=== PATIENT | male | born 1945 | race Caucasian/White ===

== ENCOUNTER → 2018-05-29 15:17 | Outpatient (CLI) | payer MEDICARE, SELFPAY ==
--- NOTE | 2018-05-29 15:24 | DI.MRI.S_ITS ---
PROCEDURE: MR KNEE LT WO CON INDICATIONS: l knee pain TECHNIQUE: Noncontrast sagittal PD fast spin echo and T2 fast spin echo with fat saturation, sagittal 3-D FLASH with fat saturation; coronal T1 spin echo and PD fast spin echo with fat saturation, and axial PD fast spin echo with fat saturation through the knee. COMPARISON: [facility], CR, XR KNEE LT 3V, 05/29/2018, 15:04. FINDINGS: Image quality: Excellent. Menisci: The medial meniscal tear involving the posterior root of the posterior horn and body, with extension to the undersurface. Truncation of the free margin of the lateral meniscal body. There is also horizontally oriented abnormal signal, also suggestive of tear involving the body. Cruciate ligaments: The anterior and posterior cruciate ligaments appear intact. Medial structures: The medial collateral ligament appears markedly thickened with intrasubstance signal change and surrounding soft tissue edema. Given the acute soft tissue edema in conjunction with the appearance of the calcific densities in this region on the comparison radiograph, findings could represent acute cortical avulsion fracture fragments The posterior oblique ligament, semimembranosus tendon insertions, oblique popliteal ligament, and meniscocapsular junction appear intact. Visualized portions of the pes anserinus tendons appear normal. No abnormal bursal fluid. Lateral structures: The lateral collateral ligament, long and short heads of the biceps femoris tendon appear intact. The popliteus tendon appears normal; the popliteofibular ligament appears intact. The posterosuperior and anteroinferior popliteomeniscal fascicles appear intact. The arcuate and fabellofibular ligaments appear intact, on either side of the lateral inferior geniculate artery. Iliotibial band appears normal. Anterior structures: The quadriceps and patellar tendons appear intact. Patellar alignment is normal. No femoral trochlear dysplasia or ventral trochlear prominence. No edema in the infrapatellar fat pad. Bones and cartilage: No bone marrow contusions or fractures. No definite articular cartilage defects seen in the medial or lateral compartment. There is no surface fraying of the cartilage overlying the median patellar ridge and central femoral trochlear. Joint space: Small joint effusion. Stephen cyst measuring 4.7 cm in the cephalocaudad dimension. IMPRESSION: Medial collateral ligament sprain without complete rupture, and given the radiographic appearance of the comparison study, probable small osseous cortical avulsion at the origin of the MCL. Circumferential knee meniscal tear involving the posterior root, horn and body. Truncation of the free margin of the lateral meniscal body with horizontally oriented signal change in keeping with ill-defined tear. Small joint effusion. Stephen cyst. Dictated by: Timo Ocampo M.D. on 05/29/2018 at 16:30 Approved by: Timo Ocampo M.D. on 05/29/2018 at 16:40
--- NOTE | 2018-05-29 15:24 | DI.RAD.S_ITS ---
PROCEDURE: XR KNEE LT 3V INDICATIONS: LEFT KNEE PAIN TECHNIQUE: 3 views of the knee were acquired. COMPARISON: None. FINDINGS: Bones: No fractures or dislocations. No suspicious bony lesions. Subtle calcific densities projecting in the region of the origin of the medial collateral ligament suggesting chronic ligamentous injury. Mild narrowing of the medial and lateral joint spaces. Soft tissues: No joint effusion. No suspicious soft tissue calcifications. Scattered vascular calcifications are present. IMPRESSION: Mild degenerative joint disease. No fracture. Chronic calcifications projecting in the region of the MCL origin raising the possibility of long-standing ligamentous injury. Dictated by: Timo Ocampo M.D. on 05/29/2018 at 15:53 Approved by: Timo Ocampo M.D. on 05/29/2018 at 15:57
== END ==
PROVIDERS: PCP Physician Assistant; Visit Provider Physician Assistant
DX: S83.412A Sprain of medial collateral ligament of left knee, initial encounter (principal); S83.207A Unspecified tear of unspecified meniscus, current injury, left knee, initial encounter; M25.462 Effusion, left knee; M71.22 Synovial cyst of popliteal space [Baker], left knee
CPT/HCPCS: 73562; 73721

== ENCOUNTER 2019-07-23 13:43 | Emergency (ER) | payer MEDICARE, SELFPAY ==
[2019-07-23 13:46] VITALS: BP 139/77; PULSE 97; RESP 24; TEMP 37.3; O2SAT 92
--- NOTE | 2019-07-23 13:50 | DI.RAD.S_ITS ---
PROCEDURE: XR CHEST 1V INDICATIONS: SHORTNESS OF BREATH TECHNIQUE: One view of the chest was acquired. COMPARISON: [facility], , CHEST 2 VIEW, 11/25/2016, 16:16. FINDINGS: Surgical changes and devices: None. Lungs and pleura: Lungs are abnormal with pulmonary hyperexpansion and a chronic interstitial prominence. No pleural effusions or pneumothorax. Mediastinum: Mediastinal contours appear normal. Heart size is normal. Bones and chest wall: No suspicious bony lesions. Overlying soft tissues appear unremarkable. IMPRESSION: Diaphragms are flattened, interstitial prominence, severe COPD and long-standing smoking history. No definite pneumonia is found that the interstitial prominence is greater on the right than the left and therefore a small degree of superimposed acute alveolitis on the right could be present. Dictated by: Jose Eller M.D. on 07/23/2019 at 14:24 Approved by: Jose Eller M.D. on 07/23/2019 at 14:24
--- NOTE | 2019-07-23 13:55 | ED_ITS ---
HPI - SOB/Dyspnea General Chief Complaint: Shortness of Breath/Dyspnea Stated Complaint: Got the CRUD/lung infected Time Seen by Provider: 07/23/19 13:51 Source: patient Mode of arrival: ambulatory Limitations: no limitations History of Present Illness HPI Narrative: 73-year-old male with a history of emphysema here for evaluation of coughing, body aches for the past couple days. He has also had increasing shortness of breath. He is not on oxygen routinely at home. He does have a nebulizer at home which he has been taking with only minimal improvement. No recent travel. He states the last time is like this he was diagnosed with pneumonia. Sent over from the walk-in clinic for evaluation. Related Data Previous Rx's Medication Instructions Recorded hydrocodone 5 mg-acetaminophen 325 1 tab PO Q4-6H PRN #10 tab 09/07/18 mg tablet ipratropium-albuterol 0.5 mg-3 3 ml INHALATION BID PRN #30 ampul 01/05/19 mg(2.5 mg base)/3 mL nebulization soln levofloxacin 750 mg PO DAILY 5 Days #5 tab 07/23/19 prednisone 20 mg PO DAILY #43 tab 07/23/19 Allergies Allergy/AdvReac Type Severity Reaction Status Date / Time No Known Drug Allergies Allergy Verified 01/05/19 16:51 Review of Systems Constitutional Constitutional: Reports fever(s) Cardiovascular Cardiovascular: Denies chest pain, Reports dyspnea and Reports dyspnea on exertion Respiratory Respiratory: Reports cough, Reports dyspnea and Reports dyspnea on exertion Gastrointestinal Gastrointestinal: Denies abdominal pain, Denies nausea and Denies vomiting Musculoskeletal Musculoskeletal: Denies myalgias and Denies arthralgias Integumentary/Breasts Skin/Breast: Denies lesions and Denies rash Neurologic Neurologic: Denies behavioral changes Psychiatric Psychiatric: Denies behavioral changes Hematologic/Lymphatic Hematologic/Lymphatic: Denies easy bleeding and Denies easy bruising Allergic/Immunologic Allergic/Immunologic: Denies urticaria [facility] Medical History Emphysema/COPD (Acute) Social History Smoking Status: Current every day smoker alcohol intake: current Social History Smoking Status: Current every day smoker alcohol intake: current Exam Initial Vital Signs Initial Vital Signs: Vital Signs Temperature 99.1 F 07/23/19 13:46 Pulse Rate 97 H 07/23/19 13:46 Respiratory Rate 24 07/23/19 13:46 Blood Pressure 139/77 07/23/19 13:46 Pulse Oximetry 92 07/23/19 13:46 Const General: frail appearing Orientation: alert and awake HENMT Head: normal to inspection and normocephalic Resp Effort & Inspection: cough, labored, pursed lip breathing and tachypneic Auscultation: diminished lung sounds Cardio Rate: regular rate Rhythm: regular rhythm Skin Lesions: no lesions Rashes: no rashes Neuro General: alert and awake Cognition: normal cognition Speech: speech normal Extrem General: normal to inspection and capillary refill normal Psych Appearance: grossly normal Course Orders Ordered: ED Orders 07/23/19 13:50 Chest [XR chest 1V] Stat 07/23/19 13:55 EKG-12 Lead Stat RT Consult Eval and Treat Now 07/23/19 14:00 B Type Natriuretic Peptide Stat Complete Blood Count AUTO DIFF Stat Comprehensive Metabolic Panel Stat Lactate (Lactic Acid) Stat Lipase Stat Procalcitonin Stat Troponin I Stat Discontinued Medications Albuterol/Ipratropium (Duoneb) 3 ml INH NOW ONE Stop: 07/23/19 13:55 Last Admin: 07/23/19 14:06 Dose: 3 ml Documented by: JEREMÍAS Albuterol/Ipratropium (Duoneb) 3 ml INH NOW ONE Stop: 07/23/19 14:13 Last Admin: 07/23/19 14:17 Dose: 3 ml Documented by: LUKE Albuterol/Ipratropium (Duoneb) 3 ml INH NOW ONE Stop: 07/23/19 14:14 Last Admin: 07/23/19 14:26 Dose: 3 ml Documented by: LUKE Albuterol/Ipratropium (Combivent Prepack) 1 box MISC SEEINSTR ONE Stop: 07/23/19 16:04 Last Admin: 07/23/19 16:19 Dose: 1 box Documented by: JEREMÍAS Levofloxacin (Levaquin) 750 mg in 150 mls @ 100 mls/hr IV NOW ONE Stop: 07/23/19 16:02 Last Infusion: 07/23/19 16:15 Dose: 0 mls/hr Documented by: Admin: 07/23/19 14:39 Dose: 100 mls/hr Documented by: LUKE Methylprednisolone (Solu-Medrol 125 Mg Vial) 125 mg IV NOW ONE Stop: 07/23/19 13:55 Last Admin: 07/23/19 14:10 Dose: 125 mg Documented by: MARLENE Vital Signs Vital signs: Vital Signs - 8 hr 07/23/19 13:46 07/23/19 14:15 07/23/19 14:45 Temperature 99.1 F Pulse Rate 97 H 110 H 105 H Respiratory Rate 24 29 H 20 Blood Pressure 139/77 Blood Pressure [Right Arm] 124/71 Pulse Oximetry 92 92 94 07/23/19 15:00 07/23/19 16:02 Temperature Pulse Rate 115 H 112 H Respiratory Rate 27 H 16 Blood Pressure Blood Pressure [Right Arm] 137/87 118/68 Pulse Oximetry 94 97 MDM - SOB/Dyspnea Lab Data Attestation: I reviewed the patient's lab results. Result diagrams: 07/23/19 14:00 07/23/19 14:00 Labs: Lab Results 07/23/19 07/23/19 07/23/19 Range/Units 14:00 14:00 14:00 WBC 6.9 (4.5-11.0) X10^3/uL RBC 4.51 (4.5-5.9) X10^6/uL Hgb 14.1 (13.5-17.5) g/dL Hct 40.9 L (41-53) % MCV 90.6 (80-100) fL MCH 31.3 (26-34) PG MCHC 34.5 (30-36) % RDW 12.8 (11.6-14.8) % Plt Count 280 (150-400) X10^3/uL Neut % (Auto) 76.1 H (50-75) % Lymph % (Auto) 10.4 L (25-40) % Gonzales % (Auto) 13.1 (3-14) % Eos % (Auto) 0.1 L (2-4) % Baso % (Auto) 0.3 (0-2) % Neut # (Auto) 5300 (9821-1887) /uL Lymph # (Auto) 700 L (7620-2984) /uL Gonzales # (Auto) 900 (0-900) /uL Eos # (Auto) 0 (0-450) /uL Baso # (Auto) 0 (0-100) /uL Total Counted Cancelled Seg Neutrophils % Cancelled Band Neutrophils % Cancelled Lymphocytes % (Manual) Cancelled Atypical Lymphs % Cancelled Monocytes % (Manual) Cancelled Eosinophils % (Manual) Cancelled Basophils % (Manual) Cancelled Metamyelocytes % Cancelled Myelocytes % Cancelled Promyelocytes % Cancelled Blast Cells % Cancelled Neutrophils # (Manual) Cancelled Nucleated RBCs Cancelled Differential Comment Cancelled Hypersegmented Neuts Cancelled Hypogranular Neuts Cancelled Reactive Lymphocytes Cancelled Plasma Cells Cancelled Smudge Cells Cancelled Other Cell Type Cancelled Toxic Granulation Cancelled Toxic Vacuolation Cancelled Dohle Bodies Cancelled Lexi Rods Cancelled WBC Morphology Comment Cancelled Platelet Estimate Cancelled Clumped Platelets Cancelled Plt Morphology Comment Cancelled RBC Morphology Cancelled Dimorphic RBCs Cancelled Polychromasia Cancelled Hypochromasia Cancelled Poikilocytosis Cancelled Basophilic Stippling Cancelled Anisocytosis Cancelled Microcytosis Cancelled Macrocytosis Cancelled Spherocytes Cancelled Pappenheimer Bodies Cancelled Sickle Cells Cancelled Target Cells Cancelled Tear Drop Cells Cancelled Ovalocytes Cancelled Stomatocytes Cancelled Helmet Cells Cancelled [place] Bodies Cancelled Ripley Rings Cancelled [place] Cells Cancelled Acanthocytes (Spur) Cancelled Rouleaux Cancelled Schistocytes Cancelled Sodium 135 L (137-145) mmol/L Potassium 4.6 (3.4-5.1) mmol/L Chloride 95 L (98-107) mmol/L Carbon Dioxide 30 (22-32) mmol/L BUN 15 (9-20) mg/dL Creatinine 0.70 (0.66-1.25) mg/dL Estimated GFR > 60.0 (>60) mL/min BUN/Creatinine Ratio 21.4 (6-22) Glucose 109 (80-110) mg/dL Lactate (0.7-2.1) mmol/L Calcium 9.5 (8.4-10.2) mg/dL Total Bilirubin 0.7 (0.2-1.3) mg/dL AST 23 (17-59) IU/L ALT 11 L (21-72) IU/L Alkaline Phosphatase 72 (38-126) U/L Troponin I (0.01-0.034) ng/mL B-Natriuretic Peptide (<100) Total Protein 7.9 (6.3-8.2) g/dL Albumin 4.2 (3.5-5.0) g/dL Globulin 3.7 (1.7-4.1) g/dL Albumin/Globulin Ratio 1.1 (1.0-2.8) Lipase (23-300) U/L Procalcitonin 0.10 (<0.5) ng/mL 07/23/19 07/23/19 07/23/19 Range/Units 14:00 14:00 14:00 WBC (4.5-11.0) X10^3/uL RBC (4.5-5.9) X10^6/uL Hgb (13.5-17.5) g/dL Hct (41-53) % MCV (80-100) fL MCH (26-34) PG MCHC (30-36) % RDW (11.6-14.8) % Plt Count (150-400) X10^3/uL Neut % (Auto) (50-75) % Lymph % (Auto) (25-40) % Gonzales % (Auto) (3-14) % Eos % (Auto) (2-4) % Baso % (Auto) (0-2) % Neut # (Auto) (6411-0319) /uL Lymph # (Auto) (4780-8129) /uL Gonzales # (Auto) (0-900) /uL Eos # (Auto) (0-450) /uL Baso # (Auto) (0-100) /uL Total Counted Seg Neutrophils % Band Neutrophils % Lymphocytes % (Manual) Atypical Lymphs % Monocytes % (Manual) Eosinophils % (Manual) Basophils % (Manual) Metamyelocytes % Myelocytes % Promyelocytes % Blast Cells % Neutrophils # (Manual) Nucleated RBCs Differential Comment Hypersegmented Neuts Hypogranular Neuts Reactive Lymphocytes Plasma Cells Smudge Cells Other Cell Type Toxic Granulation Toxic Vacuolation Dohle Bodies Lexi Rods WBC Morphology Comment Platelet Estimate Clumped Platelets Plt Morphology Comment RBC Morphology Dimorphic RBCs Polychromasia Hypochromasia Poikilocytosis Basophilic Stippling Anisocytosis Microcytosis Macrocytosis Spherocytes Pappenheimer Bodies Sickle Cells Target Cells Tear Drop Cells Ovalocytes Stomatocytes Helmet Cells Wilburn-[place] Bodies Ripley Rings Dallas Cells Acanthocytes (Spur) Rouleaux Schistocytes Sodium (137-145) mmol/L Potassium (3.4-5.1) mmol/L Chloride (98-107) mmol/L Carbon Dioxide (22-32) mmol/L BUN (9-20) mg/dL Creatinine (0.66-1.25) mg/dL Estimated GFR (>60) mL/min BUN/Creatinine Ratio (6-22) Glucose (80-110) mg/dL Lactate (0.7-2.1) mmol/L Calcium (8.4-10.2) mg/dL Total Bilirubin (0.2-1.3) mg/dL AST (17-59) IU/L ALT (21-72) IU/L Alkaline Phosphatase (38-126) U/L Troponin I < 0.012 (0.01-0.034) ng/mL B-Natriuretic Peptide 159 H (<100) Total Protein (6.3-8.2) g/dL Albumin (3.5-5.0) g/dL Globulin (1.7-4.1) g/dL Albumin/Globulin Ratio (1.0-2.8) Lipase 19 L (23-300) U/L Procalcitonin (<0.5) ng/mL 07/23/19 Range/Units 14:00 WBC (4.5-11.0) X10^3/uL RBC (4.5-5.9) X10^6/uL Hgb (13.5-17.5) g/dL Hct (41-53) % MCV (80-100) fL MCH (26-34) PG MCHC (30-36) % RDW (11.6-14.8) % Plt Count (150-400) X10^3/uL Neut % (Auto) (50-75) % Lymph % (Auto) (25-40) % Gonzales % (Auto) (3-14) % Eos % (Auto) (2-4) % Baso % (Auto) (0-2) % Neut # (Auto) (8580-7559) /uL Lymph # (Auto) (3612-5501) /uL Gonzales # (Auto) (0-900) /uL Eos # (Auto) (0-450) /uL Baso # (Auto) (0-100) /uL Total Counted Seg Neutrophils % Band Neutrophils % Lymphocytes % (Manual) Atypical Lymphs % Monocytes % (Manual) Eosinophils % (Manual) Basophils % (Manual) Metamyelocytes % Myelocytes % Promyelocytes % Blast Cells % Neutrophils # (Manual) Nucleated RBCs Differential Comment Hypersegmented Neuts Hypogranular Neuts Reactive Lymphocytes Plasma Cells Smudge Cells Other Cell Type Toxic Granulation Toxic Vacuolation Dohle Bodies Lexi Rods WBC Morphology Comment Platelet Estimate Clumped Platelets Plt Morphology Comment RBC Morphology Dimorphic RBCs Polychromasia Hypochromasia Poikilocytosis Basophilic Stippling Anisocytosis Microcytosis Macrocytosis Spherocytes Pappenheimer Bodies Sickle Cells Target Cells Tear Drop Cells Ovalocytes Stomatocytes Helmet Cells Wilburn-Har[place] Bodies Ripley Rings Cal Cells Acanthocytes (Spur) Rouleaux Schistocytes Sodium (137-145) mmol/L Potassium (3.4-5.1) mmol/L Chloride (98-107) mmol/L Carbon Dioxide (22-32) mmol/L BUN (9-20) mg/dL Creatinine (0.66-1.25) mg/dL Estimated GFR (>60) mL/min BUN/Creatinine Ratio (6-22) Glucose (80-110) mg/dL Lactate 1.3 (0.7-2.1) mmol/L Calcium (8.4-10.2) mg/dL Total Bilirubin (0.2-1.3) mg/dL AST (17-59) IU/L ALT (21-72) IU/L Alkaline Phosphatase (38-126) U/L Troponin I (0.01-0.034) ng/mL B-Natriuretic Peptide (<100) Total Protein (6.3-8.2) g/dL Albumin (3.5-5.0) g/dL Globulin (1.7-4.1) g/dL Albumin/Globulin Ratio (1.0-2.8) Lipase (23-300) U/L Procalcitonin (<0.5) ng/mL Imaging Data Chest x-ray: Radiologist's impression: [address] [address] XRay Report Signed Patient: Cassius Strong WMR#: [id number] : 8Acct:[id number] Age/Sex: 73 / MDate of Service: 07/23/19 Loc: ED Accession Number: [id number] Procedure: XR chest 1V Ordering Provider: Scotty Spain D.O. PROCEDURE: XR CHEST 1V INDICATIONS: SHORTNESS OF BREATH TECHNIQUE: One view of the chest was acquired. COMPARISON: [facility], CHEST 2 VIEW, 11/25/2016, 16:16. FINDINGS: Surgical changes and devices: None. Lungs and pleura: Lungs are abnormal with pulmonary hyperexpansion and a chronic interstitial prominence. No pleural effusions or pneumothorax. Mediastinum: Mediastinal contours appear normal. Heart size is normal. Bones and chest wall: No suspicious bony lesions. Overlying soft tissues appear unremarkable. IMPRESSION: Diaphragms are flattened, interstitial prominence, severe COPD and long-standing smoking history. No definite pneumonia is found that the interstitial prominence is greater on the right than the left and therefore a small degree of superimposed acute alveolitis on the right could be present. Dictated by: Jose Eller M.D. on 07/23/2019 at 14:24 Approved by: Jose Eller M.D. on 07/23/2019 at 14:24 ECG Data Attestation: I personally reviewed and interpreted this ECG as follows: Prior ECG tracings: not available for review Interpretation: Sinus tachycardia Ventricular rate 114 Normal axis Occasional PACs Nonspecific ST T wave changes MDM Narrative Medical decision making narrative: Patient was given steroids and antibiotics in the emergency department. After 3 DuoNeb who reported that he was feeling back to his baseline. He still remained tachycardic and tachypneic. Still had coarse breath sounds bilaterally however he stated that this was the way that he ?always is ?we did discuss admitting him to the hospital however he does not want to be admitted this again stating that he was back to baseline. I do have a strong suspicion that he is not being very well treated/maintained with his medication. He is using his nebulizer treatment every 4-5 hours at home. Will send him home with a Combivent inhaler. Also him home with a steroid taper. Will also send him home with antibiotics. He was given a phone number to help establish her primary provider the areas but given return precautions. He expressed understanding and agreement with plan. Discharge Plan Departure Patient Disposition: Home Clinical Impression: COPD exacerbation Instructions: DI for Emphysema, Chronic Obstructive Pulmonary Disease (Alternative Therapy), Chronic Obstructive Pulmonary Disease Activity Restrictions/Additional Instructions: I do recommend that tomorrow you contact the health enterprise resource planner at [phone] to help you establish a primary provider. Your given a pr escription for antibiotics. Your 1st dose is tomorrow. Your also given a prescription for steroids. Your 1st dose of this will also be tomorrow. Continue to use the your nebulizer at home as needed. He can also use the inhaler you were given here in the emergency department as directed. Return to the emergency department for any new or worsening symptoms Prescriptions: New levofloxacin 750 mg tablet 750 mg PO DAILY 5 Days Qty: 5 RF: 0 prednisone 20 mg tablet 20 mg PO DAILY Qty: 43 RF: 0 No Action hydrocodone-acetaminophen [[place]] 5-325 mg tablet 1 tab PO Q4-6H PRN (Reason: pain) Qty: 10 RF: 0 ipratropium-albuterol 0.5 mg-3 mg(2.5 mg base)/3 mL solution for nebulization 3 ml INHALATION BID PRN (Reason: shortness of breath) Qty: 30 RF: 2
[2019-07-23] MEDS: ALBUTEROL/IPRATROPIUM 3 ML AMPUL INH ×3 (14:06→14:26)
[2019-07-23] MEDS: methylPREDNISolone 125 MG/2 ML VIAL IV (14:10)
[2019-07-23 14:15] VITALS: BP 124/71; PULSE 110; PULSE 97; RESP 29; O2SAT 92; O2SAT 96
[2019-07-23 14:19] LABS: Lactate (Lactic Acid) 1.3 mmol/L (0.7-2.1)
[2019-07-23 14:23] LABS: Add Manual Diff / Slide Review NO; Basophils Absolute Auto 0 /uL (0-100); Basophils Percent Auto 0.3 % (0-2); Eosinophils Absolute Auto 0 /uL (0-450); Eosinophils Percent Auto 0.1 % (2-4); Hematocrit 40.9 % (41-53); Hemoglobin 14.1 g/dL (13.5-17.5); Lipase 19 U/L (23-300); Lymphocytes Absolute Auto 700 /uL (1100-4500); Lymphocytes Percent Auto 10.4 % (25-40); Mean Corpuscular HGB Conc 34.5 % (30-36); Mean Corpuscular Hemoglobin 31.3 PG (26-34); Mean Corpuscular Volume 90.6 fL (80-100); Monocytes Absolute Auto 900 /uL (0-900); Monocytes Percent Auto 13.1 % (3-14); Neutrophils Absolute Auto 5300 /uL (1500-7000); Neutrophils Percent Auto 76.1 % (50-75); Platelet Count 280 X10^3/uL (150-400); Red Blood Cell Count 4.51 X10^6/uL (4.5-5.9); Red Cell Distribution Width 12.8 % (11.6-14.8); White Blood Cell Count 6.9 X10^3/uL (4.5-11.0)
[2019-07-23 14:24] LABS: Alanine Aminotransferase 11 IU/L (21-72); Albumin 4.2 g/dL (3.5-5.0); Albumin Globulin Ratio 1.1 (1.0-2.8); Alkaline Phosphatase 72 U/L (38-126); Aspartate Aminotransferase 23 IU/L (17-59); BUN Creatinine Ratio 21.4 (6-22); Bilirubin Total 0.7 mg/dL (0.2-1.3); Blood Urea Nitrogen 15 mg/dL (9-20); Calcium 9.5 mg/dL (8.4-10.2); Carbon Dioxide 30 mmol/L (22-32); Chloride 95 mmol/L (98-107); Estimated Glomerular Filt Rate > 60.0 mL/min (>60); Globulin 3.7 g/dL (1.7-4.1); Glucose 109 mg/dL (80-110); HEMOLYSIS < 15 (0-50); Potassium 4.6 mmol/L (3.4-5.1); Sodium 135 mmol/L (137-145); Total Protein 7.9 g/dL (6.3-8.2)
[2019-07-23 14:35] LABS: Troponin I < 0.012 ng/mL (0.01-0.034)
[2019-07-23 14:36] LABS: B Type Natriuretic Peptide 159 (<100)
[2019-07-23] MEDS: levoFLOXacin 750 MG/150 ML PIGGYBACK 100 MG IV (14:39)
[2019-07-23 14:45] VITALS: PULSE 105; RESP 20; O2SAT 94
--- NOTE | 2019-07-23 14:53 | PC.NURSE ---
Pt feeling improved after 3 total DuoNeb treatments. Wheezing on the left anterior is improved, wheezing on right anterior has increased. Pt continues to purse lip breathe, but can speak in full sentences.
[2019-07-23 15:00] VITALS: BP 137/87; PULSE 115; RESP 27; O2SAT 94
[2019-07-23 16:02] VITALS: BP 118/68; PULSE 112; RESP 16; O2SAT 97
[2019-07-23] MEDS: IPRATROPIUM/ALBUTEROL PREPACK 1 BOX MISC (16:19)
== END 2019-07-23 16:44 | disposition home or self-care (01) ==
PROVIDERS: Emergency Provider Emergency Medicine
DX: J44.1 Chronic obstructive pulmonary disease with (acute) exacerbation (principal)
CPT/HCPCS: 36591; 71045; 80053; 83605; 83690; 83880; 84145; 84484; 85025; 93005; 94640; 96365; 96366; 96375; 99283; 99285; J1956; J2930

== ENCOUNTER → 2019-10-16 09:18 | Outpatient (CLI) | payer MEDICARE, SELFPAY | PROVIDERS: Visit Provider Physician Assistant | DX: R30.0 Dysuria (principal) | CPT/HCPCS: 87086 ==

== ENCOUNTER 2020-12-02 13:07 | Emergency (ER) | payer MEDICARE, SELFPAY ==
[2020-12-02] VITALS (12 sets, daily range): BP systolic 103–131; BP diastolic 61–83; PULSE 80–111; RESP 20–33; TEMP 36.9; O2SAT 95–98; BMI 18.2
--- NOTE | 2020-12-02 13:37 | DI.RAD.S_ITS ---
PROCEDURE: XR CHEST 1V INDICATIONS: Cough SOB TECHNIQUE: One view of the chest was acquired. COMPARISON: [facility], CR, XR CHEST 1V, 07/23/2019, 13:54. FINDINGS: Surgical changes and devices: None. Lungs and pleura: Lungs are clear. No pleural effusions or pneumothorax. Mediastinum: Mediastinal contours appear normal. Heart size is normal. Bones and chest wall: No suspicious bony lesions. Overlying soft tissues appear unremarkable. IMPRESSION: No acute cardiopulmonary pathology. Dictated by: Isai Sarabia M.D. on 12/02/2020 at 14:07 Approved by: Isai Sarabia M.D. on 12/02/2020 at 14:07
--- NOTE | 2020-12-02 13:40 | DI.CT.S_ITS ---
PROCEDURE: CT ABDOMEN PELVIS W CON INDICATIONS: RUQ and RLQ pain with palp TECHNIQUE: After the administration of intravenous contrast, 5 mm thick sections acquired from the diaphragm to the symphysis. 5 mm coronal and sagittal reformats were acquired. For radiation dose reduction, the following was used: automated exposure control, adjustment of mA and/or kV according to patient size. COMPARISON: None. FINDINGS: Image quality: Excellent. ABDOMEN: Lung bases: Scattered scarring/atelectasis although mild patchy opacity seen in the right posterior sulcus image 8/3 could reflect low-grade aspiration, bronchopneumonia versus chronic scarring. Solid organs: Liver is normal in size and enhancement. Gallbladder negative. Biliary system is non dilated. Pancreas enhances normally. Spleen is normal in size and enhancement. No adrenal nodules. Bilateral renal cortical scarring. There are renal hilar vascular calcifications. Subcentimeter renal foci, statistically cysts, although technically too small to characterize accurately and therefore nonspecific. Mild left hydroureteronephrosis. No evidence of right-sided urinary obstruction. Bladder is severely distended. Multiple dependent bladder calculi noted within the right posterior dependent bladder Peritoneum and bowel: Bowel loops demonstrate normal wall thickness and caliber. No free fluid or air. Nodes and vessels: No retroperitoneal or mesenteric adenopathy by size criteria. Aorta and inferior vena cava are normal in size. Scattered vascular calcifications seen in the aorta. Miscellaneous: No ventral hernias. PELVIS: Genitourinary: Bladder wall thickness is normal. Miscellaneous: No inguinal hernias or adenopathy. Bones: No vertebral body compression fracture. Spondylytic changes and facet arthropathy. IMPRESSION: Mild patchy opacities involving the right posterior sulcus which could reflect chronic scarring however cannot exclude low-grade aspiration or bronchopneumonia given the absence of relevant prior CTs. Severe distension of the bladder and multiple dependent right-sided bladder calculi. Mild left hydroureteronephrosis. Recommend clinical correlation to exclude bladder outlet obstruction. Dictated by: Timo Ocampo M.D. on 12/02/2020 at 14:23 Approved by: Timo Ocampo M.D. on 12/02/2020 at 14:32
--- NOTE | 2020-12-02 13:44 | ED_ITS ---
HPI - Abdominal Pain <DOUG Anderson - Last Filed: 12/02/20 16:14> General Chief Complaint: Urogenital-Male Stated Complaint: states internal bleeding, blood in urine Time Seen by Provider: 12/02/20 13:10 Source: patient Mode of arrival: Wheelchair Limitations: no limitations History of Present Illness HPI narrative: 74yo male with a history of advanced COPD (uses nebulizers for treatment), BPH, presents to the ED for hematuria. He states this has been going on for the past few days. He has had a known right-sided inguinal hernia that is often worse when he stands up and reduces when he lies down. He states he has seen ?many doctors ?about this and was told it was a ?ulcer ?in surgery is not needed lungs it goes away when he lies down. Patient states the size has reduced lately but he has noticed blood in his urine which she is concerned about. Patient states that his nails have turned yellow over the past 3 days. Denies any fevers, chills, chest pain, worsening shortness of breath, dizziness, syncope, nausea, vomiting, or diarrhea. He denies any blood in his stools. Patient states that he drinks approximately 3 beers a day, smokes cigarettes and marijuana. Patient states he takes ipratropium and tamsulosin. Patient denies worsening COPD symptoms. Patient states previously he has had 1 kidney stone which he passed, he states this was years ago. Related Data Previous Rx's Medication Instructions Recorded tamsulosin 0.4 mg capsule 0.4 mg PO DAILY #90 cap 10/29/19 ipratropium 20 mcg-albuterol 100 1 puff INHALATION QID #4 gram 11/12/20 mcg/actuation mist for inhalation ipratropium 0.5 mg-albuterol 3 mg 3 ml INHALATION 6XD #180 ampul 11/19/20 (2.5 mg base)/3 mL nebulization soln levofloxacin 750 mg PO DAILY 5 Days #5 tab 12/02/20 Allergies Allergy/AdvReac Type Severity Reaction Status Date / Time No Known Drug Allergies Allergy Verified 12/02/20 13:24 Review of Systems <DOUG Anderson - Last Filed: 12/02/20 16:14> Review of Systems Narrative: REVIEW OF SYSTEMS: GENERAL: Denies fever. HENT: No head trauma. EYES: No loss of vision, double vision, eye pain, or irritation. CARDIOVASCULAR: No chest pain or syncope. RESPIRATORY: No increased cough, reports history of emphysema, see HPI. GASTROINTESTINAL: No nausea or vomiting. GENITOURINARY: Reports hematuria, see HPI. MUSCULOSKELETAL: No joint pain. INTEGUMENTARY: No rash or lesions. NEURO: No numbness or tingling, see HPI. PSYCH: No behavior or mood changes. Patient History <DOUG Anderson - Last Filed: 12/02/20 16:14> Medical History (Updated 12/02/20 @ 15:58 by DOUG Anderson) Emphysema/COPD Social History Smoking Status: Current every day smoker Tobacco: How many years used: 55 quit status: considering quitting alcohol intake: current Smoking Status: Current every day smoker alcohol intake frequency: 0-2 drinks per day Substance Use Type: marijuana Exam <DOUG Anderson - Last Filed: 12/02/20 16:14> Initial Vital Signs Initial Vital Signs: Vital Signs Pulse Rate 106 H 12/02/20 13:15 Pulse Oximetry 95 12/02/20 13:15 PHYSICAL EXAMINATION: GENERAL: Awake and alert, elderly appearing. HENT: Normocephalic, atraumatic. EYES: Conjunctiva pink, sclera white, no periorbital swelling. CARDIOVASCULAR: S1 and S2 sounds normal. Regular rate and rhythm, no murmurs, clicks, or bruits. No pedal edema. RESPIRATORY: Normal respiratory rate, trachea midline, airway patent. No stridor, nasal flaring or accessory muscle use. Lungs with decreased sounds in lower lobes. Occasional productive cough noted. GASTROINTESTINAL: Bowel sounds normoactive. Abdomen is soft, diffuse left-sided tenderness. No organomegaly, no palpable masses. GENITALURINARY: No flank tenderness. A moderate size 8-10 cm inguinal hernia noted to right side, completely reducible when patient is lying down. MUSCULOSKELETAL: Normal gait and coordination. Equal tone and mass bilaterally. EXTREMITIES: CMS intact, no pedal edema. SKIN: Warm, dry, soft, appropriate color for ethnicity. No lesions, rashes, or wounds to visualized areas. NEURO: Alert and Oriented X 3. Good coordination. PSYCH: Appropriate affect and mood. <Radha Abraham DO - Last Filed: 12/03/20 08:10> Initial Vital Signs Initial Vital Signs: Vital Signs Pulse Rate 106 H 12/02/20 13:15 Pulse Oximetry 95 12/02/20 13:15 Course <Radha FordDOUG - Last Filed: 12/02/20 16:14> Course Course Narrative: 1515: Patient updated on plan of care, discussed the need for a catheter. Patient consents. Discussed follow-up. Catheter was inserted, urine was drained. Patient states he is feeling much better. Orders Ordered: Discontinued Medications Sodium Chloride (Normal Saline 0.9%) 1,000 mls @ 500 mls/hr IV BOLUS ONE Stop: 12/02/20 15:36 Last Infusion: 12/02/20 16:18 Dose: 0 mls/hr Documented by: Admin: 12/02/20 14:16 Dose: 500 mls/hr Documented by: [email or web address] Lidocaine HCl (Lidocaine 2% (Urojet) 5 Ml Gel) 5 ml TOP NOW ONE Stop: 12/02/20 15:04 Last Admin: 12/02/20 15:10 Dose: 5 ml Documented by: [email or web address] Consultations Consultation #1: Patient staffed with Dr. Abraham discussed test, test results, plan of care. Vital Signs Vital signs: Vital Signs - 8 hr 12/02/20 13:15 12/02/20 13:20 12/02/20 13:30 Temperature 98.4 F Pulse Rate 106 H 111 H 99 H Respiratory Rate 29 H Blood Pressure 131/78 125/63 Pulse Oximetry 95 97 96 12/02/20 14:00 12/02/20 14:30 12/02/20 15:00 Temperature Pulse Rate 104 H 98 H 99 H Respiratory Rate 22 25 H 26 H Blood Pressure 111/72 111/72 Pulse Oximetry 96 98 96 12/02/20 15:30 12/02/20 15:36 12/02/20 15:46 Temperature Pulse Rate 92 H 80 92 H Respiratory Rate 24 20 25 H Blood Pressure 103/75 Pulse Oximetry 95 96 12/02/20 15:52 12/02/20 16:00 Temperature Pulse Rate 87 95 H Respiratory Rate 26 H 26 H Blood Pressure 109/61 107/83 Pulse Oximetry 96 97 <Radha Abraham DO - Last Filed: 12/03/20 08:10> Orders Ordered: Discontinued Medications Sodium Chloride (Normal Saline 0.9%) 1,000 mls @ 500 mls/hr IV BOLUS ONE Stop: 12/02/20 15:36 Last Infusion: 12/02/20 16:18 Dose: 0 mls/hr Documented by: Admin: 12/02/20 14:16 Dose: 500 mls/hr Documented by: YONAS Lidocaine HCl (Lidocaine 2% (Urojet) 5 Ml Gel) 5 ml TOP NOW ONE Stop: 12/02/20 15:04 Last Admin: 12/02/20 15:10 Dose: 5 ml Documented by: DMITRIY Vital Signs Vital signs: Vital Signs - 8 hr 12/02/20 13:15 12/02/20 13:20 12/02/20 13:30 Temperature 98.4 F Pulse Rate 106 H 111 H 99 H Respiratory Rate 29 H Blood Pressure 131/78 125/63 Pulse Oximetry 95 97 96 12/02/20 14:00 12/02/20 14:30 12/02/20 15:00 Temperature Pulse Rate 104 H 98 H 99 H Respiratory Rate 22 25 H 26 H Blood Pressure 111/72 111/72 Pulse Oximetry 96 98 96 12/02/20 15:30 12/02/20 15:36 12/02/20 15:46 Temperature Pulse Rate 92 H 80 92 H Respiratory Rate 24 20 25 H Blood Pressure 103/75 Pulse Oximetry 95 96 12/02/20 15:52 12/02/20 16:00 Temperature Pulse Rate 87 95 H Respiratory Rate 26 H 26 H Blood Pressure 109/61 107/83 Pulse Oximetry 96 97 MDM - Abdominal Pain <DOUG Anderson - Last Filed: 12/02/20 16:14> Medical Records Attestation: I reviewed the patient's medical records. Lab Data Attestation: I reviewed the patient's lab results. Result diagrams: 12/02/20 13:20 12/02/20 13:20 Labs: Lab Results 12/02/20 12/02/20 12/02/20 Range/Units 13:15 13:20 13:20 WBC (4.5-11.0) X10^3/uL RBC (4.5-5.9) X10^6/uL Hgb (13.5-17.5) g/dL Hct (41-53) % MCV (80-100) fL MCH (26-34) PG MCHC (30-36) % RDW (11.6-14.8) % Plt Count (150-400) X10^3/uL Neut % (Auto) (50-75) % Lymph % (Auto) (25-40) % Wet[place] % (Auto) (3-14) % Eos % (Auto) (2-4) % Baso % (Auto) (0-2) % Neut # (Auto) (0613-8175) /uL Lymph # (Auto) (4471-9537) /uL Wetzel # (Auto) (0-900) /uL Eos # (Auto) (0-450) /uL Baso # (Auto) (0-100) /uL Sodium (137-145) mmol/L Potassium (3.4-5.1) mmol/L Chloride (98-107) mmol/L Carbon Dioxide (22-32) mmol/L BUN (9-20) mg/dL Creatinine (0.66-1.25) mg/dL Estimated GFR (>60) mL/min BUN/Creatinine Ratio (6-22) Glucose (80-110) mg/dL Lactate 1.9 (0.7-2.1) mmol/L Calcium (8.4-10.2) mg/dL Total Bilirubin (0.2-1.3) mg/dL AST (17-59) IU/L ALT (<50) IU/L Alkaline Phosphatase (38-126) U/L Total Creatine Kinase 74 (55-170) U/L CK-MB (CK-2) TNP CK-MB (CK-2) Rel Index TNP Troponin I < 0.012 (0.01-0.034) ng/mL Total Protein (6.3-8.2) g/dL Albumin (3.5-5.0) g/dL Globulin (1.7-4.1) g/dL Albumin/Globulin Ratio (1.0-2.8) Lipase (23-300) U/L Urine RBC (0-5/HPF) Urine WBC (0-5/HPF) Ur Squamous Epith Cells (0-5/HPF) Amorphous Sediment Urine Bacteria (None) Urine Mucus (Negative) Ur Culture Indicated? SARS-CoV-2 (PCR) Negative (Negative) 12/02/20 12/02/20 12/02/20 Range/Units 13:20 13:20 15:45 WBC 10.6 (4.5-11.0) X10^3/uL RBC 4.83 (4.5-5.9) X10^6/uL Hgb 14.9 (13.5-17.5) g/dL Hct 44.7 (41-53) % MCV 92.5 (80-100) fL MCH 30.9 (26-34) PG MCHC 33.4 (30-36) % RDW 13.5 (11.6-14.8) % Plt Count 348 (150-400) X10^3/uL Neut % (Auto) 74.6 (50-75) % Lymph % (Auto) 12.7 L (25-40) % Wetzel % (Auto) 11.6 (3-14) % Eos % (Auto) 0.6 L (2-4) % Baso % (Auto) 0.5 (0-2) % Neut # (Auto) 7900 H (4317-3840) /uL Lymph # (Auto) 1300 (4683-3891) /uL Wetzel # (Auto) 1200 H (0-900) /uL Eos # (Auto) 100 (0-450) /uL Baso # (Auto) 100 (0-100) /uL Sodium 136 L (137-145) mmol/L Potassium 3.7 (3.4-5.1) mmol/L Chloride 95 L (98-107) mmol/L Carbon Dioxide 33 H (22-32) mmol/L BUN 35 H (9-20) mg/dL Creatinine 0.73 (0.66-1.25) mg/dL Estimated GFR > 60.0 (>60) mL/min BUN/Creatinine Ratio 47.9 H (6-22) Glucose 102 (80-110) mg/dL Lactate (0.7-2.1) mmol/L Calcium 10.0 (8.4-10.2) mg/dL Total Bilirubin 1.0 (0.2-1.3) mg/dL AST 26 (17-59) IU/L ALT 24 (<50) IU/L Alkaline Phosphatase 67 (38-126) U/L Total Creatine Kinase (55-170) U/L CK-MB (CK-2) CK-MB (CK-2) Rel Index Troponin I (0.01-0.034) ng/mL Total Protein 7.8 (6.3-8.2) g/dL Albumin 4.5 (3.5-5.0) g/dL Globulin 3.3 (1.7-4.1) g/dL Albumin/Globulin Ratio 1.4 (1.0-2.8) Lipase 41 (23-300) U/L Urine RBC 5-10/hpf H (0-5/HPF) Urine WBC 5-10/hpf H (0-5/HPF) Ur Squamous Epith Cells 0-1 /hpf (0-5/HPF) Amorphous Sediment 1+ Urine Bacteria Few (2-10) H (None) Urine Mucus 1+ H (Negative) Ur Culture Indicated? Specimen cultured SARS-CoV-2 (PCR) (Negative) Point of care testing: Urine Dip Bedside Urine Glucose Negative Bedside Urine Bilirubin - Negative Bedside Urine Ketone +/- 5 Urine Specific [place] 1.025 Bedside Urine Occult Blood ++ Bedside Urine pH 6.0 Bedside Urine Protein +/- 15 Bedside Urine Urobilinogen +/- 1mg Bedside Urine Nitrite + Positive Bedside Urine Leukocytes - Negative Esterase Imaging Data Chest x-ray: Radiologist's Impression: [address] [id number] ReportSigned Patient: Cassius Strong WMR#: [id number]: 8Acct:[id number]/Sex: 74 / MDate of Service: 12/02/20Loc: ED Accession Number: [id number] Procedure: XR chest 1V Ordering Provider: Radha Ford PROCEDURE: XR CHEST 1V INDICATIONS: Cough SOB TECHNIQUE: One view of the chest was acquired. [facility]. FINDINGS: Surgical changes and devices: None. Lungs and pleura: Lungs are clear. No pleural effusions or pneumothorax. Mediastinum: Mediastinal contours appear normal. Heart size is normal. Bones and chest wall: No suspicious bony lesions. Overlying soft tissues appear unremarkable. IMPRESSION: No acute cardiopulmonary pathology. Dictated by: Isai Sarabia M.D. on 12/02/2020 at 14:07 Approved by: Isai Sarabia M.D. on 12/02/2020 at 14:07 CT ABD: Radiologist's Impression: [place] [id number] 21CT Scan ReportSigned Patient: Cassius Strong WMR#: [id number]: 8Acct:[id number]/ Sex: 74 / MDate of Service: 12/02/20Loc: EDAccession Number: [id number] Procedure: CT abdomen pelvis w con Ordering Provider: Radha Ford PROCEDURE: CT ABDOMEN PELVIS W CON INDICATIONS: RUQ and RLQ pain with palp TECHNIQUE: After the administration of intravenous contrast, 5 mm thick sections acquired from the diaphragm to the symphysis. 5 mm coronal and sagittal reformats were acquired. For radiation dose reduction, the following was used: automated exposure control, adjustment of mA and/or kV according to patient size. COMPARISON: None. FINDINGS: Image quality: Excellent. ABDOMEN: Lung bases: Scattered scarring/atelectasis although mild patchy opacity seen in the right posterior sulcus image 8/3 could reflect low-grade aspiration, b ronchopneumonia versus chronic scarring. Solid organs: Liver is normal in size and enhancement. Gallbladder negative. Biliary system is non dilated. Pancreas enhances normally. Spleen is normal in size and enhancement. No adrenal nodules. Bilateral renal cortical scarring. There are renal hilar vascular calcifications. Subcentimeter renal foci, statistically cysts, although technically too small to characterize accurately and therefore nonspecific. Mild left hydroureteronephrosis. No evidence of right-sided urinary obstruction. Bladder is severely distended. Multiple dependent bladder calculi noted within the right posterior dependent bladder Peritoneum and bowel: Bowel loops demonstrate normal wall thickness and caliber. No free fluid or air. Nodes and vessels: No retroperitoneal or mesenteric adenopathy by size criteria. Aorta and inferior vena cava are normal in size. Scattered vascular calcifications seen in the aorta. Miscellaneous: No ventral hernias. PELVIS: Genitourinary: Bladder wall thickness is normal. Miscellaneous: No inguinal hernias or adenopathy. Bones: No vertebral body compression fracture. Spondylytic changes and facet arthropathy. IMPRESSION: Mild patchy opacities involving the right posterior sulcus which could reflect chronic scarring however cannot exclude low-grade aspiration or bronchopneumonia given the absence of relevant prior CTs. Severe distension of the bladder and multiple dependent right-sided bladder calculi. Mild left hydroureteronephrosis. Recommend clinical correlation to exclude adry dder outlet obstruction. Dictated by: Timo Ocampo M.D. on 12/02/2020 at 14:23 Approved by: Timo Ocampo M.D. on 12/02/2020 at 14:32 ECG Data Interpretation: 1326: Sinus rhythm, rate 99, DC interval 142, QTC 446. No ST elevation or ST depression. Significant artifact noted. EKG also viewed by Dr. Abraham per protocol. MDM Narrative Medical decision making narrative: 74-year-old male with COPD presenting to the emergency department for concerns about blood in his urine. I suspect patient's symptoms most likely caused by a bladder outlet obstruction, this is most likely related to bladder calculi seen on CT or UTI as patient has white blood cells in bacteria seen on urinalysis. POC was nitrate positive.. Differential also includes exacerbation of BPH. Due to in January bladder seen on CT, and over 1000ml of urine found via bladder scanner, advised patient that a urinary catheter was needed. Patient consented. Over 1600ml drained. Mild hydronephrosis seen on CT, within normal limits. BUN is slightly elevated, this is most likely due to lateral a obstruction. However, he was encouraged to follow up with Urology. Initially, CT noted increased patchy opacities in lower lobes. Due to productive cough and diminished lower lung sounds, there is a slight increased concern for bacterial infection. Differential also includes scarring. However given patient's risk factors, patient was started on antibiotics. He does not have any acute respiratory distress. Oxygen saturation is within normal limits, respiratory rate 20. Denies any worsening of his COPD symptoms. Levaquin was ordered to cover UTI and pneumonia. Patient was encouraged to follow up with urologist as possible. He was encouraged to follow up with PCP in the next week for further evaluation. Strict ED return precautions given for new or worsening symptoms. Patient agreed to plan of care verbalized understanding. <Radha Abraham, DO - Last Filed: 12/03/20 08:10> Lab Data Labs: Lab Results 12/02/20 12/02/20 12/02/20 Range/Units 13:15 13:20 13:20 WBC (4.5-11.0) X10^3/uL RBC (4.5-5.9) X10^6/uL Hgb (13.5-17.5) g/dL Hct (41-53) % MCV (80-100) fL MCH (26-34) PG MCHC (30-36) % RDW (11.6-14.8) % Plt Count (150-400) X10^3/uL Neut % (Auto) (50-75) % Lymph % (Auto) (25-40) % Wetzel % (Auto) (3-14) % Eos % (Auto) (2-4) % Baso % (Auto) (0-2) % Neut # (Auto) (6207-1568) /uL Lymph # (Auto) (0932-8005) /uL Wetzel # (Auto) (0-900) /uL Eos # (Auto) (0-450) /uL Baso # (Auto) (0-100) /uL Sodium (137-145) mmol/L Potassium (3.4-5.1) mmol/L Chloride (98-107) mmol/L Carbon Dioxide (22-32) mmol/L BUN (9-20) mg/dL Creatinine (0.66-1.25) mg/dL Estimated GFR (>60) mL/min BUN/Creatinine Ratio (6-22) Glucose (80-110) mg/dL Lactate 1.9 (0.7-2.1) mmol/L Calcium (8.4-10.2) mg/dL Total Bilirubin (0.2-1.3) mg/dL AST (17-59) IU/L ALT (<50) IU/L Alkaline Phosphatase (38-126) U/L Total Creatine Kinase 74 (55-170) U/L CK-MB (CK-2) TNP CK-MB (CK-2) Rel Index TNP Troponin I < 0.012 (0.01-0.034) ng/mL Total Protein (6.3-8.2) g/dL Albumin (3.5-5.0) g/dL Globulin (1.7-4.1) g/dL Albumin/Globulin Ratio (1.0-2.8) Lipase (23-300) U/L Urine RBC (0-5/HPF) Urine WBC (0-5/HPF) Ur Squamous Epith Cells (0-5/HPF) Amorphous Sediment Urine Bacteria (None) Urine Mucus (Negative) Ur Culture Indicated? SARS-CoV-2 (PCR) Negative (Negative) 12/02/20 12/02/20 12/02/20 Range/Units 13:20 13:20 15:45 WBC 10.6 (4.5-11.0) X10^3/uL RBC 4.83 (4.5-5.9) X10^6/uL Hgb 14.9 (13.5-17.5) g/dL Hct 44.7 (41-53) % MCV 92.5 (80-100) fL MCH 30.9 (26-34) PG MCHC 33.4 (30-36) % RDW 13.5 (11.6-14.8) % Plt Count 348 (150-400) X10^3/uL Neut % (Auto) 74.6 (50-75) % Lymph % (Auto) 12.7 L (25-40) % Wetzel % (Auto) 11.6 (3-14) % Eos % (Auto) 0.6 L (2-4) % Baso % (Auto) 0.5 (0-2) % Neut # (Auto) 7900 H (3177-9681) /uL Lymph # (Auto) 1300 (7554-9360) /uL Wetzel # (Auto) 1200 H (0-900) /uL Eos # (Auto) 100 (0-450) /uL Baso # (Auto) 100 (0-100) /uL Sodium 136 L (137-145) mmol/L Potassium 3.7 (3.4-5.1) mmol/L Chloride 95 L (98-107) mmol/L Carbon Dioxide 33 H (22-32) mmol/L BUN 35 H (9-20) mg/dL Creatinine 0.73 (0.66-1.25) mg/dL Estimated GFR > 60.0 (>60) mL/min BUN/Creatinine Ratio 47.9 H (6-22) Glucose 102 (80-110) mg/dL Lactate (0.7-2.1) mmol/L Calcium 10.0 (8.4-10.2) mg/dL Total Bilirubin 1.0 (0.2-1.3) mg/dL AST 26 (17-59) IU/L ALT 24 (<50) IU/L Alkaline Phosphatase 67 (38-126) U/L Total Creatine Kinase (55-170) U/L CK-MB (CK-2) CK-MB (CK-2) Rel Index Troponin I (0.01-0.034) ng/mL Total Protein 7.8 (6.3-8.2) g/dL Albumin 4.5 (3.5-5.0) g/dL Globulin 3.3 (1.7-4.1) g/dL Albumin/Globulin Ratio 1.4 (1.0-2.8) Lipase 41 (23-300) U/L Urine RBC 5-10/hpf H (0-5/HPF) Urine WBC 5-10/hpf H (0-5/HPF) Ur Squamous Epith Cells 0-1 /hpf (0-5/HPF) Amorphous Sediment 1+ Urine Bacteria Few (2-10) H (None) Urine Mucus 1+ H (Negative) Ur Culture Indicated? Specimen cultured SARS-CoV-2 (PCR) (Negative) Point of care testing: Urine Dip Bedside Urine Glucose Negative Bedside Urine Bilirubin - Negative Bedside Urine Ketone +/- 5 Urine Specific [place] 1.025 Bedside Urine Occult Blood ++ Bedside Urine pH 6.0 Bedside Urine Protein +/- 15 Bedside Urine Urobilinogen +/- 1mg Bedside Urine Nitrite + Positive Bedside Urine Leukocytes - Negative Esterase Discharge Plan Departure Patient Disposition: Home Clinical Impression: Bladder outlet obstruction, Bladder stones, Bronchial pneumonia Inguinal hernia Qualifiers: Obstruction and gangrene presence: without obstruction or gangrene Laterality: unilateral Recurrence: not specified as recurrent Qualified Code(s): K40.90 - Unilateral inguinal hernia, without obstruction or gangrene, not specified as recurrent Instructions: How to Care for Your Hitchcock Catheter -- Male, DI for Groin Hernia, DI for Pneumonia -- Adult Activity Restrictions/Additional Instructions: Thank you for entrusting me with your care today. As discussed, your CT showed an enlarged bladder, it appears your bladder was full of urine due to an obstruction. There is some fluid around your kidney as well, your BUN lab result is elevated to 35. You also have a urinary tract infection. This is most likely the cause of blood in your urine. I prescribed you an antibiotic. This was sent to [facility] in [place]. We have placed a Hitchcock catheter into your bladder. Please leave this in place and follow-up with urology, the numbers listed below. Call this number, told me have been in the emergency department for a bladder obstruction and the catheter has been placed. Please schedule an appointment to follow-up with them in the next week. Additionally, there was some concerns for possible bacterial infection stay in your lungs is seen on CT, the antibiotic as prescribed you for urinary tract infection will treat this as well.. Return emergency department for any new or worsening symptoms especially fevers, abdominal pain, uncontrollable vomiting, or any other concerns. Your hernia does not appear to be causing any problems along is aching be reduced when you let down. Prescriptions: New levofloxacin 750 mg tablet 750 mg PO DAILY 5 Days Qty: 5 RF: 0 No Action Combivent Respimat 20-100 mcg/actuation mist 1 puff INHALATION QID Qty: 4 RF: 3 ipratropium-albuterol 0.5 mg-3 mg(2.5 mg base)/3 mL solution for nebulization 3 ml INHALATION 6XD Qty: 180 RF: 5 tamsulosin [Flomax] 0.4 mg capsule 0.4 mg PO DAILY Qty: 90 RF: 1 Referrals: Dylon Salinas DO [Primary Care Provider] - <Radha Abraham DO - Last Filed: 12/03/20 08:10> Cosign ED Attending Gricelda Attestation: I was immediately available in the department for consultation. Documentation has been reviewed. I agree with assessment and plan.
[2020-12-02 13:51] LABS: Add Manual Diff / Slide Review NO; Basophils Absolute Auto 100 /uL (0-100); Basophils Percent Auto 0.5 % (0-2); Eosinophils Absolute Auto 100 /uL (0-450); Eosinophils Percent Auto 0.6 % (2-4); Hematocrit 44.7 % (41-53); Hemoglobin 14.9 g/dL (13.5-17.5); Lymphocytes Absolute Auto 1300 /uL (1100-4500); Lymphocytes Percent Auto 12.7 % (25-40); Mean Corpuscular HGB Conc 33.4 % (30-36); Mean Corpuscular Hemoglobin 30.9 PG (26-34); Mean Corpuscular Volume 92.5 fL (80-100); Monocytes Absolute Auto 1200 /uL (0-900); Monocytes Percent Auto 11.6 % (3-14); Neutrophils Absolute Auto 7900 /uL (1500-7000); Neutrophils Percent Auto 74.6 % (50-75); Platelet Count 348 X10^3/uL (150-400); Red Blood Cell Count 4.83 X10^6/uL (4.5-5.9); Red Cell Distribution Width 13.5 % (11.6-14.8); White Blood Cell Count 10.6 X10^3/uL (4.5-11.0)
[2020-12-02 13:52] LABS: COVID19 -Nasal RAPID Negative (Negative)
[2020-12-02 13:55] LABS: Creatine Kinase 74 U/L (55-170)
[2020-12-02 13:56] LABS: Alanine Aminotransferase 24 IU/L (<50); Albumin 4.5 g/dL (3.5-5.0); Albumin Globulin Ratio 1.4 (1.0-2.8); Alkaline Phosphatase 67 U/L (38-126); Aspartate Aminotransferase 26 IU/L (17-59); BUN Creatinine Ratio 47.9 (6-22); Blood Urea Nitrogen 35 mg/dL (9-20); Carbon Dioxide 33 mmol/L (22-32); Chloride 95 mmol/L (98-107); Estimated Glomerular Filt Rate > 60.0 mL/min (>60); Globulin 3.3 g/dL (1.7-4.1); Glucose 102 mg/dL (80-110); HEMOLYSIS < 15 (0-50); Lipase 41 U/L (23-300); Potassium 3.7 mmol/L (3.4-5.1); Sodium 136 mmol/L (137-145); Total Protein 7.8 g/dL (6.3-8.2)
[2020-12-02 13:57] LABS: Lactate (Lactic Acid) 1.9 mmol/L (0.7-2.1)
[2020-12-02 14:08] LABS: Troponin I < 0.012 ng/mL (0.01-0.034)
[2020-12-02] MEDS: SODIUM CHLORIDE 0.9% 1,000 ML 500 ML IV (14:16)
[2020-12-02] MEDS: LIDOCAINE 2% (UROJET) 5 ML GEL TOP (15:10)
[2020-12-02 16:03] LABS: Amorphous Sediment Urine 1+; Bacteria Urine Few (2-10); Mucus Urine 1+ (Negative); RBC Urine 5-10/HPF (0-5/HPF); Squamous Epithelial Cell Urine 0-1 /HPF (0-5/HPF); WBC Urine 5-10/HPF (0-5/HPF)
[2020-12-02 16:04] LABS: Culture Indicated Urine Specimen Cultured
== END 2020-12-02 16:40 | disposition home or self-care (01) ==
PROVIDERS: Emergency Provider Nurse Practitioner; PCP Family Medicine
DX: N32.0 Bladder-neck obstruction (principal); N21.0 Calculus in bladder; J18.0 Bronchopneumonia, unspecified organism; K40.90 Unilateral inguinal hernia, without obstruction or gangrene, not specified as recurrent; J44.9 Chronic obstructive pulmonary disease, unspecified; N40.0 Benign prostatic hyperplasia without lower urinary tract symptoms; Z20.822 Contact with and (suspected) exposure to COVID-19; R05 Cough; R06.02 Shortness of breath; R10.11 Right upper quadrant pain; R79.89 Other specified abnormal findings of blood chemistry
CPT/HCPCS: 36415; 51798; 71045; 74177; 80053; 81003; 81015; 82550; 83605; 83690; 84484; 85025; 87086; 87635; 93005; 93010; 96360; 96361; 99284; C9803